=== PATIENT | female | born 1995 ===

== ENCOUNTER 2017-07-13 17:41 | Emergency (ER) | payer BC ==
[2017-07-13 18:39] VITALS: BP 147/73; PULSE 90; RESP 18; TEMP 98.1; O2SAT 97
--- NOTE | 2017-07-13 19:04 | ED PDOC ---
HPI: Trauma/Fall - HPI Time Seen by Provider: 07/13/17 18:42 Chief Complaint (Nursing): Back Pain Chief Complaint (Provider): fall History Per: Patient History/Exam Limitations: no limitations Additional Complaint(s): Keila Allison is a 21 year old female who presents to the ED for evaluation s/ p fall yesterday. Patient states she fell down 15 stairs. She did not sustain LOC or head injury. Patient presents to ED with pain to neck, low back and right knee. Patient took tylenol but this did not help the pain. No medical attention was sought at time of fall yesterday. PMD: none Past Medical History Reviewed: Historical Data, Nursing Documentation, Vital Signs Vital Signs: Last Vital Signs Temp 98.1 F 07/13/17 18:36 Pulse 90 07/13/17 18:36 Resp 18 07/13/17 18:36 BP 147/73 07/13/17 18:36 Pulse Ox 97 07/13/17 19:10 - Medical History PMH: No Chronic Diseases - Surgical History Surgical History: No Surg Hx - Family History Family History: States: No Known Family Hx - Living Arrangements Living Arrangements: With Family - Social History Current smoker - smoking cessation education provided: No Alcohol: None Drugs: Denies - Home Medications Home Medications: Ambulatory Orders Medication Instructions Recorded Cyclobenzaprine [Cyclobenzaprine 10 mg PO TID PRN #20 tab 07/13/17 HCl] Naproxen [Naprosyn] 500 mg PO BID #20 tab 07/13/17 - Allergies Allergies/Adverse Reactions: Allergies Allergy/AdvReac Type Severity Reaction Status Date / Time No Known Allergies Allergy Verified 07/13/17 18:35 Review of Systems ROS Statement: Except As Marked, All Systems Reviewed And Found Negative Musculoskeletal: Positive for: Neck Pain, Back Pain, Leg Pain (right knee pain) , Other (s/p fall) Neurological: Positive for: Other (no head injury or LOC) Physical Exam - Reviewed Nursing Documentation Reviewed: Yes Vital Signs Reviewed: Yes - Physical Exam Appears: Positive for: Well, Non-toxic, No Acute Distress Head Exam: Positive for: ATRAUMATIC, NORMAL INSPECTION, NORMOCEPHALIC Skin: Positive for: Normal Color. Negative for: Rash Eye Exam: Positive for: Normal appearance Neck: Positive for: Pain On Movement Of Neck. Negative for: Normal (Mild tenderness along the midline of cervical spine and bilateral paraspinal regions , no step-off) Cardiovascular/Chest: Positive for: Regular Rate, Rhythm Respiratory: Positive for: Normal Breath Sounds. Negative for: Wheezing, Respiratory Distress Gastrointestinal/Abdominal: Positive for: Soft, Other (Obese nontender abdomen) . Negative for: Tenderness Back: Positive for: Muscle Spasm (Lower lumbar region), Other (Tenderness to midline of the lumbar spine as well as bilateral paraspinal regions, no CVA tenderness bilaterally, negative bilateral straight leg raise) Extremity: Positive for: Tenderness (Lateral aspect of right knee with full range of motion) Neurologic/Psych: Positive for: Alert, Oriented - Laboratory Results Urine POC: Negative - ECG O2 Sat by Pulse Oximetry: 97 (RA) Pulse Ox Interpretation: Normal - Other Rad C spine x-ray X-Ray: Interpreted by Me, Viewed By Me X-Ray Interpretation: no fx, no dis L/S Spine x-ray X-Ray: Interpreted by Me, Viewed By Me X-Ray Interpretation: no fx, no dis Right knee x-ray X-Ray: Interpreted by Me, Viewed By Me X-Ray Interpretation: no fx, no dis Medical Decision Making Medical Decision Making: Time: 18:59 Initial Impression: 21 year old female here for evaluation s/p fall Plan: --Urine --X-Ray Knee right 3 views --Flexeril 10 mg PO --Motrin 600 mg PO --Cervical spine AP & LATERAL --LS spine AP/LAT Patient states that she feels better after pain meds given. Patient aware of all x-ray results, all questions answered. Prescription provided for Naprosyn and Flexeril. Patient was provided with referral to orthopedist for follow-up. Scribe Attestation: Documented by Wiley Summers, acting as a scribe for Martha Velazquez PA-C Provider Scribe Attestation: All medical record entries made by the Scribe were at my direction and personally dictated by me. I have reviewed the chart and agree that the record accurately reflects my personal performance of the history, physical exam, medical decision making, and the department course for this patient. I have also personally directed, reviewed, and agree with the discharge instructions and disposition. Disposition - Clinical Impression Clinical Impression: Cervical strain, Knee sprain, Back strain - Patient ED Disposition Is Patient to be Admitted: No Counseled Patient/Family Regarding: Studies Performed, Diagnosis, Need For Followup, Rx Given - Disposition Referrals: Sharon Vargas MD [Staff Provider] - Disposition: Routine/Home Disposition Time: 21:52 Condition: STABLE Additional Instructions: Take prescription medications as directed. Follow-up with primary doctor or with orthopedist for any persistent symptoms. Prescriptions: Cyclobenzaprine [Cyclobenzaprine HCl] 10 mg PO TID PRN #20 tab PRN Reason: Muscle Spasm Naproxen [Naprosyn] 500 mg PO BID #20 tab Instructions: Cervical Strain (DC), Back Pain (ED), Knee Sprain (ED) Forms: [facility] [facility] (N[place]ali), [facility] ED School/Work Excuse
--- NOTE | 2017-07-14 09:03 | RAD ---
PROCEDURE: Cervical Spine Radiographs. HISTORY: Pain. COMPARISON: None. FINDINGS: BONES: Alignment maintained. No fracture. Dens Intact. DISC SPACES: Normal. SOFT TISSUES: Normal. No prevertebral soft tissue swelling. OTHER FINDINGS: None. IMPRESSION: Normal cervical spine radiographs
--- NOTE | 2017-07-14 09:03 | RAD ---
PROCEDURE: Right Knee Radiographs. HISTORY: trauma COMPARISON: None. FINDINGS: BONES: Normal. No fracture. JOINTS: Normal. No osteoarthritis. JOINT EFFUSION: None. OTHER FINDINGS: None. IMPRESSION: Normal radiographs of the right knee.
--- NOTE | 2017-07-14 09:04 | RAD ---
PROCEDURE: Radiographs of the Lumbar Spine. HISTORY: trauma COMPARISON: No prior. FINDINGS: BONES: Normal alignment. No listhesis. No fracture. DISC SPACES: Unremarkable. OTHER FINDINGS: None. IMPRESSION: Unremarkable radiographs of the lumbar spine.
== END 2017-07-13 22:26 | disposition home or self-care (01) ==
LOC: H.ER 17:41
DX: S39.012A Strain of muscle, fascia and tendon of lower back, initial encounter (principal); S16.1XXA Strain of muscle, fascia and tendon at neck level, initial encounter; S83.91XA Sprain of unspecified site of right knee, initial encounter; W10.9XXA Fall (on) (from) unspecified stairs and steps, initial encounter; Y92.89 Other specified places as the place of occurrence of the external cause